=== PATIENT | female | born 1975 | race Caucasian/White ===

== ENCOUNTER 2019-05-09 12:46 | Emergency (ER) | payer SELFPAY ==
[2019-05-09] MEDS ORDERED: SODIUM CHLORIDE 0.9% 1,000 ML IV STA (13:07)
[2019-05-09] MEDS ORDERED: KETOROLAC 30 MG/ML VIAL IVP STA (13:08)
[2019-05-09] MEDS ORDERED: ONDANSETRON 4 MG/2 ML VIAL IVP STA (13:45)
[2019-05-09] MEDS ORDERED: MORPHINE 2 MG/ML CARPUJECT IVP STA (13:45)
[2019-05-09 13:49] LABS: BASOPHILS % (AUTO) 0.3 %; EOSINOPHILS % (AUTO) 0.1 %; HGB - HEMOGLOBIN 12.3 g/dL (12.0-16.0); LYMPHOCYTES # (AUTO) 0.4 10^3/uL (1.5-3.5); LYMPHOCYTES % (AUTO) 3.8 %; MEAN CORPUSCULAR HGB CONC 32.5 g/dL (32.0-36.0); MEAN CORPUSCULAR VOLUME 86.1 fL (81.0-99.0); MEAN PLATELET VOLUME 10.4 fL (7.9-10.8); MONOCYTES % (AUTO) 0.3 %; NEUTROPHILS % (AUTO) 95.2 %; PLT - PLATELET COUNT 286 10^3/uL (130-450); RED BLOOD COUNT 4.39 10^6/uL (4.20-5.40); RED CELL DISTRIBUTION WIDTH 14.6 % (12.0-15.0); WHITE BLOOD COUNT 9.4 x10^3/uL (4.8-10.8)
[2019-05-09 14:04] LABS: ALBUMIN 4.4 g/dL (3.2-5.5); ALBUMIN/GLOBULIN RATIO 1.4 (1.0-2.2); BILIRUBIN,TOTAL 0.9 mg/dL (0.2-1.0); CALCIUM 9.4 mg/dL (8.5-10.3); CREATININE 0.8 mg/dL (0.4-1.0); TOTAL PROTEIN 7.5 g/dL (6.7-8.2)
[2019-05-09] MEDS ORDERED: IOVERSOL 320 100 ML VIAL IVP ONE ×2 (14:10→14:43)
--- NOTE | 2019-05-09 14:11 | ED Physician Documentation ---
PD HPI ABD PAIN - Stated complaint Stated Complaint: ABD PX/VOMITING - Chief complaint Chief Complaint: Abd Pain - History obtained from History obtained from: Patient, Family - History of Present Illness Timing - onset: Today Timing - duration: Days (1) Timing - details: Abrupt onset Pain level max: 7 Pain level now: 6 Quality: Aching, Pain Location: LUQ, LLQ Improved by: Laying still Worsened by: Moving, Palpation Associated symptoms: Nausea, Vomiting, Diarrhea. No: Fever, Hematemesis, Constipation, Melena, Hematochezia Similar symptoms before: Has not had sx before Recently seen: Not recently seen - Additional information Additional information: 43-year-old female, visiting from [place], states that she started having left- sided abdominal pain with nausea and vomiting today. Nothing makes it better or worse. No fevers. No recent antibiotics. Does not take any medications at home. It is on the left side of the abdomen. Review of Systems Constitutional: denies: Fever, Chills Nose: denies: Rhinorrhea / runny nose, Congestion Throat: denies: Sore throat Cardiac: denies: Chest pain / pressure Respiratory: denies: Cough GI: reports: Nausea, Vomiting, Diarrhea Skin: denies: Rash Musculoskeletal: denies: Neck pain, Back pain Neurologic: denies: Headache PD PAST MEDICAL HISTORY - Past Medical History Past Medical History: No - Past Surgical History Past Surgical History: No - Present Medications Home Medications: Ambulatory Orders Medication Instructions Recorded Confirmed Cefdinir 300 mg PO BID #20 capsule 05/09/19 Hydrocodone/Acetaminophen 1 - 2 each PO Q6H PRN #14 tablet 05/09/19 [Hydrocodon-Acetaminophen 5-325] Ondansetron Odt [Zofran] 4 mg TL Q6H PRN #10 tablet 05/09/19 - Allergies Allergies/Adverse Reactions: Allergies Allergy/AdvReac Type Severity Reaction Status Date / Time No Known Drug Allergies Allergy Verified 05/09/19 12:56 - Living Situation Living Situation: reports: With family Living Arrangement: reports: At home - Social History Does the pt have substance abuse?: No - Family History Family history: reports: Non contributory PD ED PE NORMAL - Vitals Vital signs reviewed: Yes - General General: Alert and oriented X 3, No acute distress - HEENT HEENT: Moist mucous membranes - Neck Neck: Supple, no meningeal sign - Cardiac Cardiac: RRR - Respiratory Respiratory: No respiratory distress, Clear bilaterally - Abdomen Abdomen: Soft, Non distended, Other (Diffusely tender palpation over the left upper and left lower quadrants. No peritoneal signs) - Back Back: No CVA TTP - Derm Derm: Warm and dry, No rash - Extremities Extremities: No edema - Neuro Neuro: Alert and oriented X 3 - Psych Psych: Normal mood, Normal affect Results - Vitals Vitals: Vital Signs - 24 hr 05/09/19 05/09/19 05/09/19 12:51 13:45 14:00 Temperature 36.4 C L 37.0 C Heart Rate 83 93 Respiratory 22 18 Rate Blood Pressure 95/69 121/64 O2 Saturation 100 99 05/09/19 15:30 Temperature Heart Rate 95 Respiratory 18 Rate Blood Pressure 117/74 O2 Saturation 98 Oxygen O2 Source Room air - Labs Labs: Laboratory Tests 05/09/19 05/09/19 05/09/19 13:30 13:30 14:45 WBC 9.4 RBC 4.39 Hgb 12.3 Hct 37.8 MCV 86.1 MCH 28.0 MCHC 32.5 RDW 14.6 Plt Count 286 MPV 10.4 Neut # (Auto) 9.0 H Lymph # (Auto) 0.4 L Bullock # (Auto) 0.0 Eos # (Auto) 0.0 Baso # (Auto) 0.0 Absolute Nucleated RBC 0.00 Nucleated RBC % 0.0 Sodium 141 Potassium 3.6 Chloride 107 Carbon Dioxide 22 Anion Gap 12.0 BUN 20 Creatinine 0.8 Estimated GFR (MDRD) 79 L Glucose 120 H Calcium 9.4 Total Bilirubin 0.9 AST 18 ALT 16 Alkaline Phosphatase 75 Total Protein 7.5 Albumin 4.4 Globulin 3.1 Albumin/Globulin Ratio 1.4 Lipase 23 Urine Color YELLOW Urine Clarity HAZY Urine pH 7.5 Ur Specific [place] <=1.005 Urine Protein 30 H Urine Glucose (UA) NEGATIVE Urine Ketones NEGATIVE Urine Occult Blood LARGE H Urine Nitrite POSITIVE H Urine Bilirubin NEGATIVE Urine Urobilinogen 0.2 (NORMAL) Ur Leukocyte Esterase SMALL H Urine RBC 11-25 H Urine WBC >25 H Ur Squamous Epith Cells FEW Squamous Urine Bacteria Many H Ur Microscopic Review INDICATED Urine Culture Comments INDICATED Urine HCG, Qual NEGATIVE - Rads (name of study) CT abdomen pelvis Radiology: Prelim report reviewed, EMP read contemporaneously, See rad report (1. Minimal left-sided hydronephrosis and delayed enhancement of the left kidney. No stone identified in the ureter, however, a 2 mm nonobstructing stone in the posterior bladder is seen, suspect recently passed stone. 2. Intrauterine device in place. ) PD MEDICAL DECISION MAKING - ED course Complexity details: reviewed results, re-evaluated patient, considered differential, d/w patient, d/w family ED course: Patient presents to the emergency department left flank pain. Appears to have passed a kidney stone while in the emergency department. Has a urinalysis that is concerning for pyelonephritis. Given Rocephin here. Will place on cefdinir for home. She is well-appearing, nontoxic. Afebrile. Tolerating p.o. without difficulty. Pain well controlled. Patient and family counseled regarding signs and symptoms for which I believe and urgent re-evaluation would be necessary. Patient with good understanding of and agreement to plan and is comfortable going home at this time This document was made in part using voice recognition software. While efforts are made to proofread this document, sound alike and grammatical errors may occur. Departure - Departure Disposition: Home, Self Care Clinical Impression: Pyelonephritis, Ureteral stone Condition: Good Instructions: ED Stone Renal Passed, ED Kidney Infec Female Follow-Up: your,doctor in 1 week [Other] Prescriptions: Cefdinir 300 mg PO BID #20 capsule Hydrocodone/Acetaminophen [Hydrocodon-Acetaminophen 5-325] 1 - 2 each PO Q6H PRN #14 tablet PRN Reason: pain Ondansetron Odt [Zofran] 4 mg TL Q6H PRN #10 tablet PRN Reason: Nausea / Vomiting Comments: Take all antibiotics until gone. Return if you worsen. You do have a small kidney stone that passed today. You also have an infection in your kidney. Return for worsening pain, fevers or symptoms that are not controlled. Do not drink alcohol or drive while on narcotic pain medicine. Note that many narcotic pain relievers also contain tylenol/acetaminophen. Please ensure that your total dose of acetaminophen from all sources does not exceed 3 grams (3000mg) per day. You may constipated on this medication, take a stool softener such as "Colace" twice a day while you are on it. Also recommend a [id number] laxative such as senna or MiraLAX any day that you do not have a bowel movement. If you received narcotic pain medication in the emergency department, do not drive or operate machinery for the next 24 hours. Discharge Date/Time: 05/09/19 15:58
[2019-05-09 14:55] LABS: BILIRUBIN,URINE NEGATIVE (NEGATIVE); GLUCOSE, URINE (UA) NEGATIVE (NEGATIVE); KETONES,URINE (UA) NEGATIVE (NEGATIVE); LEUKOCYTE ESTERASE, URINE SMALL (NEGATIVE); NITRITE,URINE POSITIVE (NEGATIVE); OCCULT BLOOD,URINE LARGE (NEGATIVE); PH,URINE 7.5 PH (5.0-7.5); PROTEIN,URINE 30 mg/dL (NEGATIVE); UROBILINOGEN,URINE 0.2 (NORMAL) E.U./dL (NORMAL)
[2019-05-09 14:57] LABS: CLARITY,URINE HAZY (CLEAR)
[2019-05-09 14:58] LABS: HCG UR QUAL NEGATIVE
[2019-05-09 15:06] LABS: BACTERIA,URINE Many /HPF (None Seen); SQUAMOUS EPITHELIAL CELL,UR FEW Squamous (<= Few)
[2019-05-09] MEDS ORDERED: cefTRIAXone 1 GM VIAL IVP STA (15:09)
--- NOTE | 2019-05-09 15:10 | CT Report ---
Reason: abdominal pain, acute, non-localized Procedure Date: 05/09/2019 Accession Number: [id number] / [id number] Procedure: CT - Abdomen/Pelvis W CPT Code: Final Report FULL RESULT: EXAM: CT ABDOMEN AND PELVIS EXAM DATE: 05/09/2019 02:40 PM. CLINICAL HISTORY: Abdominal pain, acute, non-localized. COMPARISONS: None. TECHNIQUE: Routine helical CT imaging was performed through the abdomen and pelvis. IV contrast: 100 mL of Optiray 320. Enteric contrast: No. Reconstructions: Coronal and sagittal. In accordance with CT protocol optimization, one or more of the following dose reduction techniques were utilized for this exam: automated exposure control, adjustment of mA and/or KV based on patient size, or use of iterative reconstructive technique. FINDINGS: Lung Bases: Unremarkable. Liver: Normal. No masses. Gallbladder/Bile Ducts: Unremarkable. Spleen: Normal. Pancreas: Normal. Adrenal Glands: Normal. Kidneys: There is minimal left-sided hydronephrosis, urothelial thickening and fat stranding along the left urinary collecting system. A discrete obstructing stone is not visualized in the ureter, however, a 2 mm stone is seen in the dependent midline posterior bladder, suspect recently passed stone. There is slight delayed enhancement of the left kidney. A 1 mm nonobstructing stone in the mid right kidney is seen (image 28/5). Peritoneal Cavity/Bowel: Normal. No free fluid, free air or adenopathy. No masses or acute inflammatory process. The appendix is well visualized and normal. Pelvic Organs: Intrauterine device is seen in place. The bladder and visualized pelvic organs are within normal limits. Vasculature: No aneurysms or other significant abnormality. Bones: No significant abnormality. Other: None. IMPRESSION: 1. Minimal left-sided hydronephrosis and delayed enhancement of the left kidney. No stone identified in the ureter, however, a 2 mm nonobstructing stone in the posterior bladder is seen, suspect recently passed stone. 2. Intrauterine device in place. RAD[facility]
[2019-05-09 15:33] VITALS: BP 117/74
== END 2019-05-09 15:58 | disposition home or self-care (01) ==
LOC: EDBD → ED 12:46
DX: N13.6 Pyonephrosis (principal); Z97.5 Presence of (intrauterine) contraceptive device
CPT/HCPCS: 36415; 74177; 80053; 81001; 81025; 83690; 85025; 87077; 87086; 87181; 96361; 96374; 96375; 99284; 99285; Q9967; 81003